=== PATIENT | male | born 1990 | race Caucasian/White ===

== ENCOUNTER 2022-02-26 10:22 | Outpatient (CLI) | payer OTHER, SELFPAY ==
[2022-02-26 12:25] LABS: Chloride* 100 mmol/L (96-114); Potassium* 4.8 mmol/L (3.6-5.1); Sodium* 139 mmol/L (135-149)
[2022-02-26 12:28] LABS: Blood Urea Nitrogen* 27 mg/dL (5-24); Carbon Dioxide* 32 mmol/L (20-32); Cholesterol* 161 mg/dL (90-199); Creatinine* 1.1 mg/dL (0.5-1.5); Estimated Glomerular Filt Rate 93 ml/min; Glucose* 98 mg/dL (60-115); Triglycerides* 41 mg/dL (40-149)
[2022-02-26 12:29] LABS: Calcium* 9.7 mg/dL (8.4-10.6); HDL Cholesterol* 46 mg/dL (>=40); LDL Cholesterol Calculated 107 mg/dL (<100)
== END 2022-02-26 10:23 | disposition home or self-care (01) ==
LOC: LKVLAB 10:22
PROVIDERS: PCP Family Medicine; Visit Provider Family Medicine
DX: R42 Dizziness and giddiness (principal); R03.0 Elevated blood-pressure reading, without diagnosis of hypertension
CPT/HCPCS: 36415; 80048; 80061

== ENCOUNTER 2023-04-25 15:14 | Outpatient (CLI) | payer OTHER, SELFPAY ==
--- NOTE | 2023-04-25 15:30 | CRLHL7_ITS ---
For Patients: As a result of the Century Cures Act, medical imaging exams and procedure reports are released immediately into your electronic medical record. You may view this report before your referring provider. If you have questions, please contact your health care provider. Indication: Pain in leg. Evaluate for stress fracture Technique: Multiplanar multi sequence MRI of the right leg was performed without contrast Comparison: Radiographs 04/15/2023 Findings: No fracture is detected. The marrow signal of the right and left tibia and fibula is normal. There is no bone marrow edema. No abnormal periosteal reaction is present. No asymmetric cortical thickening is present. The muscles demonstrate normal bulk and signal intensity. The neurovascular structures appear normal. Minimal subcutaneous edema is nonspecific. Impression: No acute findings. Marrow signal normal. No evidence of stress reaction. Dictated by Alcon Alcocer MD @ 04/26/2023 12:15:03 PM (Electronically Signed)
== END 2023-04-25 15:15 | disposition home or self-care (01) ==
LOC: MRI 15:14
PROVIDERS: PCP Family Medicine; Visit Provider Family Medicine
DX: M79.604 Pain in right leg (principal)
CPT/HCPCS: 73718

== ENCOUNTER 2024-09-24 14:09 | Outpatient (CLI) | payer BC, SELFPAY | END 2024-09-24 14:10 | disposition home or self-care (01) | LOC: LKVREF 14:10 | PROVIDERS: PCP Family Medicine; Visit Provider Family Medicine | DX: E78.5 Hyperlipidemia, unspecified (principal) | CPT/HCPCS: 80048; 80061 ==